=== PATIENT | female | born 1950 | race Asian ===

== ENCOUNTER 2025-05-27 21:40 | Emergency (ER) | payer MEDICAID, OTHER ==
[~2025-05-27] VITALS: Ht 167.6 cm; Wt 81.6 kg
[2025-05-27 21:43] VITALS: BP 150/92; PULSE 74; RESP 18; TEMP 97.9; O2SAT 97
== END 2025-05-27 21:58 | disposition left against medical advice (07) ==
LOC: ER 21:40
DX: R42 Dizziness and giddiness (principal); Z79.899 Other long term (current) drug therapy